=== PATIENT | female | born 1995 | race Caucasian/White ===

== ENCOUNTER 2025-03-08 14:27 | Emergency (ER) | payer OTHER | END 2025-03-08 17:31 | disposition home or self-care (01) | LOC: ED 14:27 | DX: S96.912A Strain of unspecified muscle and tendon at ankle and foot level, left foot, initial encounter (principal); W00.0XXA Fall on same level due to ice and snow, initial encounter; Y93.89 Activity, other specified; Y92.89 Other specified places as the place of occurrence of the external cause; Y99.8 Other external cause status ==